=== PATIENT | male | born 1980 | race African-American/Black ===

== ENCOUNTER 2018-05-01 04:08 | Inpatient (IN) | payer MEDICAID ==
[~2018-05-01] VITALS: Ht 172.7 cm; Wt 49.9 kg
[2018-05-01] MEDS ORDERED: ONDANSETRON HCL 4MG/2ML INJ IV STA (06:23)
[2018-05-01] MEDS ORDERED: MORPHINE SULFATE 4 MG/ML CPJ (NOT FOR IM USE) IV STA (06:23)
[2018-05-01] MEDS ORDERED: SODIUM CHLORIDE 0.9% 1,000 ML IV ONE (06:23)
[2018-05-01 07:19] LABS: HEMATOCRIT. 46.7 % (42.0-52.0); HEMOGLOBIN. 15.7 g/dL (14.0-18.0); MEAN CORPUSCULAR HEMOGLOBIN 33.8 pg (28.0-32.0); MEAN CORPUSCULAR VOLUME 100.4 fL (80.0-94.0); MEAN PLATELET VOLUME 8.7 fl (7.4-10.4); PLATELET 335 x1000/uL (130-400); RED BLOOD CELL COUNT 4.65 mill/uL (4.7-6.1); RED CELL DISTRIBUTION WIDTH 13.3 % (11.6-14.6)
[2018-05-01 07:23] LABS: CLARITY URINE CLEAR (CLEAR); COLOR URINE YELLOW (YELLOW); KETONES URINE NEGATIVE (NEGATIVE); LEUKOCYTE ESTERASE URINE NEGATIVE (NEGATIVE); NITRITE URINE NEGATIVE (NEGATIVE); OCCULT BLOOD URINE NEGATIVE (NEGATIVE); PROTEIN URINE NEGATIVE (NEGATIVE); UROBILINOGEN URINE 0.2 E.U./dL (0.2-1.0)
[2018-05-01 07:26] LABS: CHLORIDE 105 mEq/L (98-107)
[2018-05-01] MEDS ORDERED: POTASSIUM CHLORIDE 20MEQ TABLET SR PO ONE (07:45)
[2018-05-01 07:57] LABS: PLATELET ESTIMATE NORMAL
[2018-05-01 08:00] VITALS: BP 133/93
[2018-05-01] MEDS ORDERED: MAGNESIUM/ALUMINUM HYDROXIDE/SIMETHICONE 30ML UDC PO PRN (08:00)
[2018-05-01] MEDS ORDERED: ACETAMINOPHEN 650MG/20.3ML UDC GT PRN (08:00)
[2018-05-01] MEDS ORDERED: HYDROCODONE/ACETAMINOPHEN 10/325MG TABLET PO PRN (08:00)
[2018-05-01] MEDS ORDERED: ACETAMINOPHEN 325MG TABLET PO PRN (08:00)
[2018-05-01] MEDS ORDERED: DIATR MEGLU/DIATRIZOATE SOLN 30ML PO SCH (08:00)
[2018-05-01] MEDS ORDERED: HYDROCODONE/ACETAMINOPHEN 5/325MG TABLET PO PRN (08:00)
[2018-05-01] MEDS ORDERED: ACETAMINOPHEN 650MG SUPP PR PRN (08:00)
[2018-05-01 08:05] LABS: INR 1.1; PROTHROMBIN TIME 10.6 sec (9.1-11.1)
[2018-05-01] MEDS: MORPHINE SULFATE 4 MG/ML CPJ (NOT FOR IM USE) IV PRN ×3 (09:41→21:58)
[2018-05-01] MEDS: ONDANSETRON HCL 4MG/2ML INJ IV PRN ×3 (09:41→21:58)
[2018-05-01 12:30] VITALS: BP 133/93
[2018-05-01] MEDS ORDERED: IOHEXOL-300 100 ML BOTTLE ONE (15:21)
[2018-05-01 16:00] VITALS: BP 165/95
[2018-05-01 17:32] LABS: CREATINE KINASE 109 IU/L (39-308)
[2018-05-01 17:34] LABS: CREATINE KINASE MB FRACTION < 1.0 ng/mL (0.5-3.6)
[2018-05-01] MEDS: SODIUM CHLORIDE 0.45% 1,000 ML IV SCH (18:23)
[2018-05-01 20:00] VITALS: BP 138/81
[2018-05-02] VITALS: BP 126/76
[2018-05-02 00:20] LABS: CREATINE KINASE 94 IU/L (39-308)
[2018-05-02 00:21] LABS: CREATINE KINASE MB FRACTION < 1.0 ng/mL (0.5-3.6)
[2018-05-02 04:00] VITALS: BP 137/68
[2018-05-02] MEDS: SODIUM CHLORIDE 0.45% 1,000 ML IV SCH (05:50)
[2018-05-02 08:00] VITALS: BP 118/87
[2018-05-02] MEDS: ONDANSETRON HCL 4MG/2ML INJ IV PRN (09:04)
[2018-05-02 09:42] LABS: HEMATOCRIT. 42.3 % (42.0-52.0); HEMOGLOBIN. 14.3 g/dL (14.0-18.0); MEAN CORPUSCULAR HEMOGLOBIN 33.2 pg (28.0-32.0); MEAN CORPUSCULAR VOLUME 98.3 fL (80.0-94.0); MEAN PLATELET VOLUME 8.4 fl (7.4-10.4); PLATELET 299 x1000/uL (130-400); RED CELL DISTRIBUTION WIDTH 13.2 % (11.6-14.6)
[2018-05-02 10:13] LABS: CHLORIDE 102 mEq/L (98-107)
[2018-05-02 10:20] LABS: LDL CHOLESTEROL 97 mg/dL (5-100)
[2018-05-02 10:24] LABS: T4 FREE 0.89 ng/dL (0.76-1.46)
[2018-05-02 10:36] LABS: HDL CHOLESTEROL 38 mg/dL (40-59)
[2018-05-02 11:42] LABS: ATYPICAL LYMPHOCYTES 5; PLATELET ESTIMATE NORMAL
[2018-05-02 12:00] VITALS: BP 118/75
[2018-05-02 16:00] VITALS: BP 114/75
[2018-05-02 16:29] VITALS: BP 114/70
[2018-05-04 14:21] LABS: ANTI-MYELOPEROXIDASE AB < 9.0 U/mL (0.0-9.0); ANTI-PROTEINASE 3 ABS < 3.5 U/mL (0.0-3.5); ATYPICAL P-ANCA <1:20 titer (Neg:<1:20); CYTOPLASMIC C-ANCA <1:20 titer (Neg:<1:20); PERINUCLEAR P-ANCA <1:20 titer (Neg:<1:20)
== END 2018-05-02 17:22 | disposition home or self-care (01) | DRG 254 ==
LOC: ER 04:08 → 6EST 07:46 → EDBEDREQ 07:48 → ENRESERV 07:56 → CANRESERV 07:56 → EDBEDREQSVC 09:46 → ENRESERV 11:01
PROVIDERS: ADMIT Internal Medicine; ATTEND Internal Medicine
DX: K58.0 Irritable bowel syndrome with diarrhea (principal); K92.2 Gastrointestinal hemorrhage, unspecified; E87.6 Hypokalemia; F17.200 Nicotine dependence, unspecified, uncomplicated; I10 Essential (primary) hypertension; F15.90 Other stimulant use, unspecified, uncomplicated; K59.00 Constipation, unspecified; R55 Syncope and collapse; F10.10 Alcohol abuse, uncomplicated; Z71.41 Alcohol abuse counseling and surveillance of alcoholic; Z86.19 Personal history of other infectious and parasitic diseases
CPT/HCPCS: 36415; 71045; 74177; 78278; 80053; 80061; 81003; 82270; 82550; 82553; 83520; 83605; 83690; 83735; 84100; 84439; 84443; 84481; 84484; 85025; 85610; 86256; 86850; 86900; 87015; 87045; 87427; 87449; 87493; 93005; 96374; 96375; 99285; A9560; J2270; J2405; J7030; Q9967

== ENCOUNTER 2018-09-15 17:16 | Emergency (ER) | payer MEDICAID ==
[~2018-09-15] VITALS: Ht 172.7 cm; Wt 57.0 kg
[2018-09-15] MEDS ORDERED: PERMETHRIN 5% CREAM 60GM TOP ONE (18:45)
[2018-09-15] MEDS ORDERED: AZITHROMYCIN 500 MG TABLET PO ONE (18:45)
[2018-09-15] MEDS ORDERED: CEFTRIAXONE SODIUM 250 MG/VIAL IM ONE (18:45)
[2018-09-15] MEDS ORDERED: STERILE WATER FOR INJECTION 10ML VIAL ONE (19:22)
[2018-09-15 19:39] LABS: CLARITY URINE CLEAR (CLEAR); COLOR URINE YELLOW (YELLOW); KETONES URINE NEGATIVE (NEGATIVE); LEUKOCYTE ESTERASE URINE 2+ (NEGATIVE); NITRITE URINE NEGATIVE (NEGATIVE); OCCULT BLOOD URINE TRACE (NEGATIVE); PH URINE 6.5 (4.5-8.0); PROTEIN URINE 1+ (NEGATIVE); SPECIFIC GRAVITY URINE 1.018 (1.005-1.030)
[2018-09-15 20:12] VITALS: BP 155/103
== END 2018-09-15 20:12 | disposition home or self-care (01) ==
LOC: ER 17:16
DX: N39.0 Urinary tract infection, site not specified (principal); B86 Scabies; I10 Essential (primary) hypertension; A64 Unspecified sexually transmitted disease; Z98.890 Other specified postprocedural states
CPT/HCPCS: 81003; 87077; 87086; 96372; 99283; A4216; J0696

== ENCOUNTER 2019-02-18 18:06 | Inpatient (IN) | payer MEDICAID ==
[~2019-02-18] VITALS: Ht 167.6 cm; Wt 50.8 kg
[2019-02-18] MEDS ORDERED: SODIUM CHLORIDE 0.9% 1,000 ML IV ONE ×2 (21:37→23:59)
[2019-02-18 21:57] LABS: CLARITY URINE CLEAR (CLEAR); COLOR URINE YELLOW (YELLOW); HEMATOCRIT. 46.6 % (42.0-52.0); HEMOGLOBIN. 15.9 g/dL (14.0-18.0); KETONES URINE TRACE (NEGATIVE); LEUKOCYTE ESTERASE URINE NEGATIVE (NEGATIVE); MEAN CORPUSCULAR HEMOGLOBIN 33.8 pg (28.0-32.0); MEAN CORPUSCULAR VOLUME 99.2 fL (80.0-94.0); MEAN PLATELET VOLUME 7.9 fl (7.4-10.4); NITRITE URINE NEGATIVE (NEGATIVE); OCCULT BLOOD URINE NEGATIVE (NEGATIVE); PH URINE 5.5 (4.5-8.0); PLATELET 390 x1000/uL (130-400); PROTEIN URINE NEGATIVE (NEGATIVE); RED BLOOD CELL COUNT 4.69 mill/uL (4.7-6.1); RED CELL DISTRIBUTION WIDTH 14.1 % (11.6-14.6); UROBILINOGEN URINE 0.2 E.U./dL (0.2-1.0)
[2019-02-18 22:02] LABS: CHLORIDE 105 mEq/L (98-107)
[2019-02-18 22:05] LABS: INR 1.1; PARTIAL THROMBOPLASTIN TIME 25.7 sec (23.4-31.0); PROTHROMBIN TIME 11.2 sec (9.6-11.0)
[2019-02-18 22:46] LABS: ATYPICAL LYMPHOCYTES 1; PLATELET ESTIMATE NORMAL
[2019-02-19 04:00] VITALS: BP 121/81
[2019-02-19] MEDS ORDERED: IOHEXOL-300 100 ML BOTTLE ONE (04:39)
[2019-02-19] MEDS: MORPHINE SULFATE 2 MG/ML CPJ (NOT FOR IM USE) IV PRN ×2 (05:23→15:26)
[2019-02-19 08:00] VITALS: BP 98/69
[2019-02-19] MEDS ORDERED: ENOXAPARIN 40MG/0.4ML SYR SUBCUT SCH ×2 (09:00→12:45)
[2019-02-19 09:46] LABS: CHLORIDE 106 mEq/L (98-107); HEMATOCRIT. 41.3 % (42.0-52.0); HEMOGLOBIN. 13.8 g/dL (14.0-18.0); MEAN CORPUSCULAR HEMOGLOBIN 33.4 pg (28.0-32.0); MEAN CORPUSCULAR VOLUME 99.6 fL (80.0-94.0); MEAN PLATELET VOLUME 7.9 fl (7.4-10.4); PLATELET 355 x1000/uL (130-400); RED BLOOD CELL COUNT 4.15 mill/uL (4.7-6.1); RED CELL DISTRIBUTION WIDTH 14.2 % (11.6-14.6)
[2019-02-19 11:08] LABS: PLATELET ESTIMATE NORMAL
[2019-02-19 12:04] VITALS: BP 132/81
[2019-02-19] MEDS ORDERED: SODIUM CHLORIDE 0.9% 1,000 ML IV SCH (12:40)
[2019-02-19] MEDS ORDERED: THIAMINE HCL 100MG TABLET PO SCH (12:45)
[2019-02-19] MEDS ORDERED: HYDROCODONE/APAP 7.5/325MG 1 TAB TABLET PO PRN (12:45)
[2019-02-19] MEDS ORDERED: ONDANSETRON HCL 4MG/2ML INJ IV PRN (12:45)
[2019-02-19 13:08] LABS: *BENZODIAZEPINES SCREEN URINE NEGATIVE (NEGATIVE); *COCAINE SCREEN URINE PRESUMTIVE POSITIVE (NEGATIVE); METHADONE URINE SCREEN NEGATIVE (NEGATIVE); OPIATES URINE SCREEN NEGATIVE (NEGATIVE)
[2019-02-19 13:09] LABS: *AMPHETAMINES SCREEN URINE PRESUMTIVE POSITIVE (NEGATIVE); *BARBITURATES SCREEN URINE NEGATIVE (NEGATIVE); CANNABINOID URINE SCREEN PRESUMTIVE POSITIVE (NEGATIVE); PHENCYCLIDINE URINE SCREEN NEGATIVE (NEGATIVE)
[2019-02-19 15:39] VITALS: BP 151/97
[2019-02-19 16:06] LABS: CREATINE KINASE 493 IU/L (39-308)
[2019-02-19 16:07] LABS: CREATINE KINASE MB FRACTION 1.1 ng/mL (0.5-3.6)
== END 2019-02-19 16:00 | disposition left against medical advice (07) | DRG 465 ==
LOC: ER 18:06 → EDBEDREQTM 02-19 01:10 → EDBEDREQ 02-19 01:10 → ENRESERV 02-19 01:34 → 6EST 02-19 04:23
PROVIDERS: ADMIT Internal Medicine Nephrology; ATTEND Internal Medicine Nephrology
DX: N20.0 Calculus of kidney (principal); K50.90 Crohn's disease, unspecified, without complications; K74.60 Unspecified cirrhosis of liver; K52.9 Noninfective gastroenteritis and colitis, unspecified; K92.1 Melena; F17.210 Nicotine dependence, cigarettes, uncomplicated; Z53.21 Procedure and treatment not carried out due to patient leaving prior to being seen by health care provider; Z79.899 Other long term (current) drug therapy
CPT/HCPCS: 36415; 74177; 80048; 80305; 80320; 82550; 82553; 83605; 84484; 86850; 86900; 99285; J1650; J2270; J7030; Q9967; G0480